=== PATIENT | male | born 1955 | race Caucasian/White ===

== ENCOUNTER 2021-01-25 14:56 | Inpatient (IN) | payer MEDICARE, OTHER ==
[~2021-01-25] VITALS: Ht 177.8 cm; Wt 86.9 kg
[2021-01-25] MEDS ORDERED: CIPRO500 MG PO (15:40)
--- NOTE | 2021-01-25 22:05 | EKG ---
[facility] [address] [facility] [place] [address] Signed Sinus tachycardia with premature ventricular complexes or fusion complexes Otherwise normal ECG No previous ECGs available Confirmed by KAYLA GALVIN DO ([id number]) on 01/25/2021 10:05:05 PM Electronically Signed By: KAYLA GALVIN DO 01/25/212204 PATIENT NAME: ELIEZER MCCLELLAND Electrocardiogram DATE OF : 55 PHYSICIAN: KAYLA GALVIN DO REPORT #: [id number] REPORT IS CONFIDENTIAL AND NOT TO BE RELEASED WITHOUT AUTHORIZATION
--- NOTE | 2021-01-26 01:11 | NUR ---
PT TO ROOM 124 VIA STRETCHER WITH SOFTWARE TEST AUTOMATION ENGINEER FROM ED. ALERT AND ORIENTED. PT ABLE TO TRANSFER SELF TO BED FROM STRETCHER. ORDERS RECEIVED. IVF AND IV ABX INFUSING ORDERED. TELE #8 PLACED. SR. HR 90'S. BP NOTED TO BE ELEVATED. PT DENIES PAIN OR NAUSEA. HUFF PATENT WITH LIGHT PINK URINE. SANDWICH BOX AND ICE WATER PROVIDED. PT DENIES QUESTIONS OR CONCERNS. PT ORIENTED TO ROOM AND NURSE CALL LIGHT. ADMISSION ASSESSMENT COMPLETE.
--- NOTE | 2021-01-26 02:27 | NUR ---
DR. GALVIN CALLED TO CLARIFY VERBAL ORDERS RECEIVED BY TEST PULLER. HUFF EMPTIED OF 1400 ML RED COLORED URINE. IVF BOLUS INFUSING ORDERED. SODIUM BICARB INFUSING ORDERED. FRESH WATER PROVIDED. PT DENIES PAIN OR NAUSEA. NO FURTHER NEEDS AT THIS TIME. CALL LIGHT IN REACH.
--- NOTE | 2021-01-26 04:29 | NUR ---
HUFF EMPTIED OF 1325 ML RED COLORED URINE. IV FLUID RATE ADJUSTED BASED ON INTAKE. INFUSING WNL. PT REPORTS HE IS RESTING WELL. DENIES NEEDS. CALL LIGHT IN REACH.
--- NOTE | 2021-01-26 06:30 | NUR ---
HUFF EMPTIED AND IVF INFUSING AT ADJUSTED RATE. PT DENIES PAIN OR NAUSEA. LAB IN ROOM FOR MORNING DRAW. FRESH WATER PROVIDED. PT DENIES FURTHER NEEDS. CALL LIGHT IN REACH.
--- NOTE | 2021-01-26 08:04 | NUR ---
Patient awake in bed, alert and oriented. Patient denies pain at this time. IV fluids started per provider order. Fresh water provided. Patient reports he has no needs. Personal supplies and call light within reach.
--- NOTE | 2021-01-26 10:48 | NUR ---
MED REC COMPLETE
--- NOTE | 2021-01-26 13:10 | NUR ---
REPORT RECEIVED FROM AKILAH MEDINA. PT RESTING IN BED WATCHING TV. PT DENIES PAIN AND NASUEA. ICE WATER REFILLED. NO ADDITIONAL REQUESTS OR COMPLAINTS. CALL LIGHT WITHIN REACH. BED RAILS UP.
--- NOTE | 2021-01-26 13:41 | NUR ---
AFTERNOON ASSESSMENT DUE. PT RESTING IN BED WATCHING TV. LAB TO BEDSIDE FOR AFTERNOON LABS. PT DENIES PAIN AND NASUEA AT THIS TIME. PT ALERT AND ORIENTED AND REPORTS FEELING "SO MUCH BETTER THAN WHEN I CAME IN, THE PAIN IS GONE." PT REPORTS MILD EPISODE OF NAUSEA THIS MORNING WITH ACTIVITIES. HEART SOUNDS REGULAR, NORMAL SINUS RHYTHEM NOTED ON MONITOR. HERAT RATE IN THE 80'S. BOWEL TONES ACTIVE. PINK URINE WITH ONE SMALL CLOT NOTED IN HUFF CATHETER TUBING. PT DENIES PAIN EVEN WITH ABDOMINAL PALPATION. NO ADDITIONAL REQUESTS OR COMPLAINTS. CALL LIGHT WITHIN REACH. BED RAILS UP.
--- NOTE | 2021-01-26 15:44 | NUR ---
THIS RN TO ROOM TO CHECK ON PT. PT RESTING ON LEFT SIDE WITH EYES CLOSED. RESPIRATIONS EVEN AND UNALBORED. PT ALLOWED TO REST. CALL LIGHT WITHIN REACH. BED RAILS UP.
--- NOTE | 2021-01-26 17:26 | NUR ---
THIS RN TO ROOM TO CHECK ON PT. PT AWAKE AND WATCHING TV. IV PUMP ALARMING, ABX INFUSION AND FLUSH COMPLETE. SODIUM BICARB CONTINUES INFUSION, IV ASSESSED, WNL, NO S/S OF PHLEBITIS NOTED. NEW IV FLUID BAG HUNG, LR INFUSING THROUGH 2ND IV. PT DENIES ADDITIONAL REQUESTS OR COMPLAINTS. CALL LIGHT WIHTIN REACH. DINNER AT BEDSIDE. PT REPORTS HE IS NOT HUNGRY AT THIS TIME, "MIGHT EAT A BIT LATER."
--- NOTE | 2021-01-26 18:40 | NUR ---
THIS RN TO ROOM TO CHECK ONPT. PT WATCHING TV. DENIES PAIN AND NAUSEA. IV FLUIDS RATE INCREASED PER MD ORDER. PT DENIES REQUESTS OR COMPLAINTS. AGRICULTURAL SPECIALIST AT BEDSIDE FOR VITALS. VITAL SIGNS STABLE. NO ADDITIONAL REQUESTS OR COMPLAINTS. CALL LIGHT WITHIN REACH. BED RAILS UP.
--- NOTE | 2021-01-26 18:49 | NUR ---
PT HERE FOR OBSTRUCTIVE UROPATHY. PT REMAINS IN BED FOR MUCH OF SHIFT. DECLINES TIME UP TO CHAIR WHEN OFFERED. PT TOLERATING REGULAR DIET WITH MODERATE APPITITE. REMAINS ON TELEMETRY MONITORING, NORMAL SINUS RHYTHEM NOTED. PT AFEBRIAL THIS SHIFT. IV ABX GIVEN PER ORDER. HUFF CATHETER REMAINS IN PLACE WITH PINK URINE NOTED THROUGHOUT SHIFT, QUANTITY SUFFICIENT. IV FLUID RATE ADJUSTED THIS MORNING BY NURSING STAFF AND THIS AFTERNOON BY MD. SODIUM CONTINUES TO INFUSE. PT REPORTS PAIN IS RESOLVING. PT USES CALL LIGHT AND MAKES NEEDS KNOWN.
--- NOTE | 2021-01-26 18:52 | NUR ---
Call light is in reach. Patient vitals, I&Os are complete.
--- NOTE | 2021-01-26 19:58 | NUR ---
REPORT RECEIVED FROM DAY SHIFT RN. PT LYING IN BED ALERT AND ORIENTED. DENIES NEEDS AT THIS TIME. WHITE BOARD UPDATED. CALL LIGHT IN REACH.
--- NOTE | 2021-01-26 21:20 | NUR ---
PT REQUESTING TO GET UP TO BR TO SHOWER AND HAVE BM. SL AND PIV WRAPPED. PT REPORTS HAVING "MARBLE" LIKE BM. REPORTS HE STRAINED TO HAVE BM. URINE IN HUFF RED WITH CLOTS NOTED. EDUCATION PROVIDED REGARDING STRAINING. PT RECEPTIVE. PT SHOWERED INDEPENDENTLY. CLEAN LINENS AND GOWNS PROVIDED.
--- NOTE | 2021-01-26 22:20 | NUR ---
PT BACK TO BED AFTER SHOWER. IVF INFUSING AT ADJUSTED RATE. IV ABX INFUSING WNL. ASSESSMENT COMPLETE. PT DENIES PAIN OR NAUSEA. HUFF PATENT WITH RED URINE AND CLOTS IN TUBING. TELE IN PLACE. SR. HR 80'S. PT DENIES QUESTIONS OR CONCERNS. CALL LIGHT IN REACH.
--- NOTE | 2021-01-27 01:10 | NUR ---
NEW BAG IVF HUNG. NEW TELE BATTERY PLACED. HUFF DRAINING PINK TINGED URINE. FEWER CLOTS NOTED THAN PREVIOUS ASSESSMENT. PT RESTING ON LEFT SIDE. RESPIRATIONS EVEN. NO APPARENT DISTRES.
--- NOTE | 2021-01-27 02:45 | NUR ---
HUFF EMPTIED OF RED TINGED URINE. NO CLOTS NOTED IN THE TUBING AT THIS TIME. FLUID RETURNED TO 125ML/HR PER EMAR. PREVIOUS FLUID ORDER COMPLETE. PT RESTING ON LEFT SIDE WITH EYES CLOSED. RESPIRATIONS EVEN. NO APPARENT DISTRESS.
--- NOTE | 2021-01-27 06:21 | NUR ---
VS AND I&O COMPLETE. HUFF WITH RED COLORED URINE. NO CLOTS NOTED. PT DENIES PAIN OR NAUSEA. FRESH WATER PROVIDED. NO FURTHER NEEDS.
--- NOTE | 2021-01-27 07:34 | NUR ---
Patient resting in bed, eyes closed, respirations even and non labored. Patient has no distress. Hancock patent, light pink color. Patient has no distress. Personal supplies and call light within reach.
--- NOTE | 2021-01-27 11:17 | NUR ---
Patient resting in bed, eyes closed, respirations even and non labored. Patient has no distress. Hancock patent, pink urine noted in bag with no blood clots. Patient has no needs.
--- NOTE | 2021-01-27 13:26 | NUR ---
SPOKE WITH PATIENT IN ROOM. PATIENT STATES HE IS AMBULATORY INDEPENDENTLY. DOES NOT USE ANY DME. DRIVES. WORKS. LIVES ALONE. DOES NOT FEEL HE HAS FINANCIAL WORRIES FOR COST OF MEDS/FOOD/UTILITIES. PATIENT DOES NOT HAVE PCP CURRENTLY. DISCUSSED IMPORTANCE OF THIS. HE DOES NOT WANT HELP FINDING PCP AT THIS TIME. HAND-OUT GIVEN OF LOCAL MEDICAL CLINICS IN AREA. NO KNOWN BARRIERS TO DC HOME AT THIS TIME.
--- NOTE | 2021-01-27 17:21 | NUR ---
Patient reports he is doing well this evening. Patient denies pain. Hancock intact, patent with renate colored urine. Fresh water provided. Patient has no needs. Personal supplies and call light within reach.
--- NOTE | 2021-01-27 18:13 | NUR ---
Vitals, I&Os are complete. Call light is in reach.
--- NOTE | 2021-01-27 19:15 | NUR ---
REPORT RECEIVED FROM DAY SHIFT RN. PT LYING IN BED ALERT AND ORIENTED. DENIES NEEDS AT THIS TIME. WHITE BOARD UPDATED. CALL LIGHT IN REACH.
--- NOTE | 2021-01-27 21:30 | NUR ---
EVENING ASSESSMENT COMPLETE. SCHEDULED MEDS ADMINISTERED PER EMAR. IV ABX INFUSING WNL. PT DENIES PAIN OR NAUSEA. TELE DC'D PER ORDER. IVF RATE CHANGED. HUFF PATENT WITH QS RED COLORED URINE. NO BLOOD CLOTS NOTED IN TUBING. EXTRA BLANKET AND FRESH WATER PROVIDED. PT DENIES QUESTIONS OR CONCERNS. CALL LIGHT IN REACH.
--- NOTE | 2021-01-28 00:30 | NUR ---
PICC LINE PULSATILE FLUSH WITH 10 ML NS. BLOOD RETURN NOTED. IV ABX INFUSING WNL. URINAL EMPTIED. FRESH WATER PROVIDED.
--- NOTE | 2021-01-28 01:10 | NUR ---
IV PUMP ALARMING. NEW BAG IVF HUNG. PT RESTING ON LEFT SIDE WITH EYES CLOSED. RESPIRATIONS EVEN. HUFF EMPTIED. URINE LIGHT RED. NO CLOTS NOTED.
--- NOTE | 2021-01-28 04:02 | NUR ---
PT AWAKE. DENIES PAIN OR NAUSEA. HUFF EMPTIED. IVF INFUSING WNL. FRESH WATER PROVIDED. PT DENIES FURTHER NEEDS. CALL LIGHT IN REACH.
--- NOTE | 2021-01-28 06:25 | NUR ---
VS AND I&O COMPLETE. PT DENIES PAIN OR NAUSEA. NO REPORTS OF DIZZINESS. HUFF WITH QS RED COLORED URINE. NO BLOOD CLOTS NOTED. PT DENIES NEEDS. CALL LIGHT IN REACH.
--- NOTE | 2021-01-28 10:44 | NUR ---
Offered patient shower. Patient refused. ADAM Moreira notified.
--- NOTE | 2021-01-28 11:47 | NUR ---
Patient resting in bed watching tv. No distress noted, respiratiosn even and non labored. Patient reports he wants to discharge home yi.
--- NOTE | 2021-01-28 12:37 | NUR ---
PT ALERT, ORIENTED AND EXPRESSED GREAT SATISFACTION IN CARE HE HAS RECEIVED WHILE AT [facility]-BUT READY FOR DC. ADMITS HE DOESN'T WAIT WELL. HAD GOOD VISIT, GAVE BLESSING. WILL FOLLOW
[2021-01-28] MEDS ORDERED: CEFPODOXIME PR200 MG PO (13:01)
== END 2021-01-28 15:34 | disposition home or self-care (01) | DRG 690 ==
LOC: ED 14:56 → MS 14:58 → ED 23:39 → MS 01-26 10:36
PROVIDERS: ADMIT Student in an Organized Health Care Education/Training Program; ATTEND Student in an Organized Health Care Education/Training Program
DX: N13.6 Pyonephrosis (principal); N17.9 Acute kidney failure, unspecified; Z20.822 Contact with and (suspected) exposure to COVID-19; I10 Essential (primary) hypertension; E66.9 Obesity, unspecified; Z68.28 Body mass index [BMI] 28.0-28.9, adult
CPT/HCPCS: 51702; 71046; 74176; 74177; 80048; 80053; 81001; 83690; 83735; 84100; 85025; 87088; 93005; 93010; 97161; 99285-25; C9803; J1650; J2543; J3475; J7070; J7121; Q9967; U0003